=== PATIENT | male | born 1990 | race Caucasian/White ===

== ENCOUNTER 2024-08-26 16:55 | Emergency (ER) | payer MEDICARE, SELFPAY ==
[2024-08-26 16:57] VITALS: BP 130/94
[2024-08-26 17:16] LABS: % Basophils 0.3 % (0-2); % Eosinophils 0.1 % (0-6); % Immature Granulocytes 0.2 % (0-0.5); % Lymphocytes 5.8 % (20.5-51.1); % Monocytes 7.3 % (1.7-9.3); % Neutrophils 86.3 % (42.2-75.2); Absolute Lymphocytes 0.6 10^3/uL (1.2-3.4); Absolute Monocytes 0.7 10^3/uL (0.1-0.6); Absolute Neutrophils 8.3 10^3/uL (1.4-6.5); Hematocrit 44.6 % (39.0-52.0); Hemoglobin 16.2 g/dL (13.0-18.0); Mean Corp Hgb Conc. 36.3 g/dL (33.0-37.0); Mean Corpuscular Hgb 30.8 pg (27.0-31.0); Mean Corpuscular Volume 84.8 fL (80.0-94.0); Mean Platelet Volume 9.9 fL (7.4-10.4); Nucleated Red Blood Cells % 0 % (-); Platelet Count 192 10^3/uL (130-400); Red Blood Cell Count 5.26 10^6/uL (4.70-6.10); Red Cell Dist. Width 12.2 % (11.5-14.5); White Blood Cell Count 9.6 10^3/uL (4.8-10.8)
[2024-08-26 17:28] LABS: ALT (SGPT) 25 U/L (0-50); AST (SGOT) 26 U/L (17-59); Albumin 4.3 g/dl (3.5-5.0); Alkaline Phosphatase 62 U/L (38-126); Blood Urea Nitrogen 15 mg/dl (9-20); Carbon Dioxide 29 mmol/L (22-30); Chloride 96 mmol/L (98-107); Glucose 154 mg/dl (70-99); Lipase 37 U/L (23-300); Potassium 4.1 mmol/L (3.5-5.1); Sodium 132 mmol/L (135-145); Total Bilirubin 1.3 mg/dl (0.2-1.3); eGFR > 60.00
--- NOTE | 2024-08-26 19:58 | ED.GENMED ---
History of Present Illness
<Va Orourke MD, Resident - Last Filed: 08/26/24 22:08>
General
Chief Complaint: Abdominal Symptoms
Source: patient
Exam Limitations: none
Time Seen by Provider: 08/26/24 19:39
Nursing documentation reviewed up to this point in time: agreed with
History of Present Illness
History of Present Illness:
34yo M with H diverticulosis, prediabetes who presents from home to ED for abdominal pain, vomiting, constipation. He reports history of chronic constipation for several years, last saw GI for colonoscopy about 1 year ago, not on any daily
medications, reports small hard to pass BMs with occasional bright red blood. His last BM/flatus was 2 days ago and feels worsening abdominal pain. He tried taking miralax once with no relief. Last night he began vomiting and noticed small amount
bright red blood. Denies difficulty swallowing or significant pain with eating/drinking. Also reports chills, malaise, diffuse body aches, mild lightheadedness with standing starting last night as well.
Past History
<Va Orourke MD, Resident - Last Filed: 08/26/24 22:08>
Past History
ED Past Medical History: NIDDM (prediabetes diet controlled) and Other (diverticulosis, h/o diverticulitis)
ED Past Surgical History: None
Patient has exhibited threatening behavior?: No
Social History
Tobacco: Vaping (daily, 1 pod per day)
Alcohol: Former
Drug: Marijuana (daily)
Personal: Single
Living: alone
Review of Systems
<Va Orourke MD, Resident - Last Filed: 08/26/24 22:08>
Review of Systems
Allergies reviewed?: Yes
Constitutional: Reports fatigue and chills; Denies fever
EENT: Reports sore throat (2/2 vomiting)
Respiratory: Reports no symptoms; Denies cough or trouble breathing
Cardiac: Reports chest pain; Denies diaphoresis, palpitations or syncope
ABD/GI: Reports abdominal pain, nausea, vomiting, constipated and bloody stools; Denies diarrhea or black stools
: Reports no symptoms
Musculoskeletal: Reports joint pain and muscle pain; Denies edema
Skin: Reports no symptoms
Neurological: Reports dizzy; Denies headache
Endocrine: Reports no symptoms
Hematologic/Lymphatic: Reports no symptoms
Psychiatric: Reports no symptoms
Phy Exam
<Va Orourke MD, Resident - Last Filed: 08/26/24 22:08>
General Physical Exam
General Presentation: well appearing and no apparent distress
General age: appears stated age
General Skin: warm and dry
General Habitus: normal
General Mental: alert
General Hydration: dry mucous membranes
Cardiovascular Exam
Cardiovascular Exam: regular rate/rhythm, no edema and no murmur
Pulmonary Exam
Pulmonary Exam: lungs clear, no respiratory distress, no crackles, no rhonchi, no wheezing and no cough
Oxygen Status: room air
Gastrointestinal Exam
Gastrointestinal Exam: normal bowel sounds, non tender, soft, non distended and other (no rebound, rigidity, guarding)
Neurological Exam
Neurological Exam: alert, oriented x3 and speech normal
Musculoskeletal Exam
Musculoskeletal Exam: no edema
Skin Exam
Skin Exam: normal color and warm/dry
Psychiatric Exam
Psychiatric Exam: normal mood/affect
Course
<Va Orourke MD, Resident - Last Filed: 08/26/24 22:08>
Orders/Labs/Results
Orders:
Orders
08/26/24 17:04
Comprehensive Metabolic Panel Urgent
Lipase Urgent
08/26/24 17:05
Complete Blood Count/With Diff Urgent
08/26/24 20:13
Abdomen Xray - 1 View [CR Abdomen - 1 View] Urgent
Comment:
Reason For Exam: vomiting, abd pain. CONSTIPATION-eval stool burden
08/26/24 20:14
0.9% Sodium Chloride 1000 ml [Nss] 1,000 ml IV BOLUS
Ondansetron Injectable [Zofran] 4 mg IV NOW ONE
08/26/24 20:29
Influenza A+B Rapid Molecular Urgent
[place] Source: Nasal Swab
Specimen Description:
08/26/24 21:56
Magnesium Citrate [Citroma] 300 ml PO ONCE ONE
Abnormal Lab Results
08/26/24 08/26/24
17:04 17:05
Absolute Neuts (auto) 8.3 H 10^3/uL
(1.4-6.5)
Absolute Lymphs (auto) 0.6 L 10^3/uL
(1.2-3.4)
Absolute Monos (auto) 0.7 H 10^3/uL
(0.1-0.6)
Neutrophils % 86.3 H %
(42.2-75.2)
Lymphocytes % 5.8 L %
(20.5-51.1)
Sodium 132 L mmol/L
(135-145)
Chloride 96 L mmol/L
(98-107)
Glucose 154 H mg/dl
(70-99)
08/26/24 17:05
08/26/24 17:04
Vital Signs
Initial and Last Documented VS:
Initial Vital Signs
Temp Pulse Resp BP Pulse Ox
98.1 F 117 20 130/94 98
08/26/24 16:57 08/26/24 16:57 08/26/24 16:57 08/26/24 16:57 08/26/24 16:57
Last Documented Vital Signs
Temp Pulse Resp BP Pulse Ox
98.1 F 73 16 114/76 98
08/26/24 16:57 08/26/24 20:33 08/26/24 20:33 08/26/24 20:33 08/26/24 20:45
<Shahid Johnson, DO - Last Filed: 08/26/24 20:17>
Orders/Labs/Results
Orders:
Orders
08/26/24 17:04
Comprehensive Metabolic Panel Urgent
Lipase Urgent
08/26/24 17:05
Complete Blood Count/With Diff Urgent
08/26/24 20:13
Abdomen Xray - 1 View [CR Abdomen - 1 View] Urgent
Comment:
Reason For Exam: vomiting, abd pain. CONSTIPATION-eval stool burden
08/26/24 20:14
0.9% Sodium Chloride 1000 ml [Nss] 1,000 ml IV BOLUS
Ondansetron Injectable [Zofran] 4 mg IV NOW ONE
08/26/24 20:29
Influenza A+B Rapid Molecular Urgent
[place] Source: Nasal Swab
Specimen Description:
08/26/24 21:56
Magnesium Citrate [Citroma] 300 ml PO ONCE ONE
Abnormal Lab Results
08/26/24 08/26/24
17:04 17:05
Absolute Neuts (auto) 8.3 H 10^3/uL
(1.4-6.5)
Absolute Lymphs (auto) 0.6 L 10^3/uL
(1.2-3.4)
Absolute Monos (auto) 0.7 H 10^3/uL
(0.1-0.6)
Neutrophils % 86.3 H %
(42.2-75.2)
Lymphocytes % 5.8 L %
(20.5-51.1)
Sodium 132 L mmol/L
(135-145)
Chloride 96 L mmol/L
(98-107)
Glucose 154 H mg/dl
(70-99)
08/26/24 17:05
08/26/24 17:04
Vital Signs
Initial and Last Documented VS:
Initial Vital Signs
Temp Pulse Resp BP Pulse Ox
98.1 F 117 20 130/94 98
08/26/24 16:57 08/26/24 16:57 08/26/24 16:57 08/26/24 16:57 08/26/24 16:57
Last Documented Vital Signs
Temp Pulse Resp BP Pulse Ox
98.1 F 73 16 114/76 98
08/26/24 16:57 08/26/24 20:33 08/26/24 20:33 08/26/24 20:33 08/26/24 20:45
<Va Orourke MD, Resident - Last Filed: 08/26/24 22:08>
MDM/Problems Addressed
Differential Diagnosis Includes:
constipation, fecal impaction, bowel obstruction, anal fissure, taryn arias tear
MDM/Problems Addressed:
34yo M with chronic constipation presenting for abdominal pain, vomiting, constipation.
CBC, CMP, lipase ordered prior to evaluation unremarkable.
Do not suspect bowel obstruction or perforation given benign abdominal exam.
Treat nausea/vomiting with zofran and IV NS bolus. Reassess symptoms prn.
Will obtain abdominal xray to evaluate stool burden.
Discussed possible treatment options including enema, mag citrate, disimpaction pending abd xray results.
Will need GI and PCP follow up as well as long-term bowel regimen.
Will check flu swab given additional nonspecific symptoms starting last night.
<Va Orourke MD, Resident - Last Filed: 08/26/24 22:08>
*Critical Care Note
Total Time (30-74mins, 75-104mins- exclusive of procedures): Not Applicable
<Va Orourke MD, Resident - Last Filed: 08/26/24 22:08>
Update Note
Update Note:
Returned to bedside-- patient remains well-appearing, no distress. Abd xray shows stool in colon. Will discharge home with mag citrate. After mag citrate produces bowel movement, reviewed use of daily miralax to prevent future constipation. Flu
negative. He should follow up with his PCP and GI outpatient provider. Discussed above with patient-- he is understanding and agreeable with plan.
ED Attending Note
<aV Orourke MD, Resident - Last Filed: 08/26/24 22:08>
-
Portions of this chart may have been created with voice recognition software.� Occasional wrong word or��sound alike� substitutions may have occurred due to the inherent limitations of voice recognition software.
<Shahid Johnson DO - Last Filed: 08/26/24 20:17>
ED Attending Note
Patient seen and examined by attending physician: Yes
I performed the substantive portion of visit, reviewed & personally made and approve the management plan that is documented in note by myself or ALPHONSE.: Yes
ED Attending Note:
I have seen and evaluated the patient with a [id number] encounter. I have spoken to the resident and involved in the medical history, the physical exam, medical decision making.
Evaluation and management service: agree unless noted differently below.
Results interpretation: agree unless noted differently below.
Focused HPI: 34-year-old male presenting with vague abdominal pain, constipation, nausea and vomiting. Patient states he has vomited multiple times that he is now noticing blood-tinged sputum. We discussed likely Taryn-Arias tear. Patient
states he has not passed any stool in over 24 hours. He does have a constipation. MiraLAX at home does not help
Physical exam: Sitting in bed comfortably. Mildly dry mucous membranes. No chest wall crepitus. Abdomen soft and nontender. No abdominal distention
Medical Decision Making: Will obtain x-ray to evaluate the amount and location of patient. Will consider magnesium citrate and possibly enema. No clinical evidence to suggest small bowel obstruction
Discharge Plan
Departure
Patient Disposition: Home (Routine Discharge)
Date of Disposition: 08/26/24
Time of Disposition: 21:57
Patient with high blood pressure during this ER visit?: No
Discharge Problem:
Constipation
Instructions: Constipation, Adult (DC)
Prescriptions:
No Action
famotidine 20 MG tablet
20 mg PO BID Qty: 28 0RF
Rx Instructions:
Take 20 mg twice a day for 14 days
ascorbic acid (vitamin C) [Vitamin C] 500 MG tablet
1,000 mg PO BID Qty: 56 0RF
Rx Instructions:
Take 1,000 mg twice a day for 14 days
aspirin 81 MG tablet,chewable
81 mg PO DAILY Qty: 14 0RF
Rx Instructions:
Take 81 mg daily for 14 days
zinc sulfate 220 MG capsule
220 mg PO DAILY Qty: 14 0RF
Rx Instructions:
Take 220 mg daily for 14 days
cholecalciferol (vitamin D3) 1,000 UNITS tablet
2,000 units PO DAILY Qty: 28 0RF
Rx Instructions:
Take 2,000 units daily for 14 days
melatonin 5 MG tablet
5 mg PO HS Qty: 14 0RF
Rx Instructions:
Take 5 mg daily at bedtime for 14 days
Referrals:
Fran Cervantes MD [Active] - As needed (Call your [facility] tele[facility] technician to schedule follow up appointment as needed)
Martita Kim CRNP [Family Provider] - Call in 1-3 days for appt (Call your Primary Care Provider to schedule follow up appointment after being seen in Emergency Room.)
Activity Restrictions/Additional Instructions:
You were seen in the Emergency Room for abdominal pain, nausea/vomiting, constipation.
Your abdominal xray showed stool in your colon. There was no bowel obstruction.
Your lab work was normal. Flu test was negative.
You should take mag citrate at home help you have a bowel movement. After you have a bowel movement, start miralax daily to prevent constipation in the future.
Follow up with your Primary Care Provider this week after being seen in the Emergency Room.
Follow up with the [facility] tele[facility] technician you have seen in the past. If you need a referral to the [facility], their information is provided in your discharge paperwork.
Return to the emergency room for worsening symptoms, not able to tolerate any food/drink, or new concerns.
Interventions
Interventions:
*General Assessment Last Done: 08/26/24 16:57
*ED COVID-19 Vaccine History Last Done: 08/26/24 21:06
[id number] Assessment Last Done: 08/26/24 21:06
Discharge Date and Time
Print Language: BULGARIAN
[2024-08-26] MEDS: NSS 1000 IV (20:28)
[2024-08-26] MEDS: ZOFRAN 4 MG IV (20:30)
[2024-08-26 20:33] VITALS: BP 114/76
[2024-08-26 22:08] VITALS: BP 106/61
[2024-08-26] MEDS: CITROMA 300 ML PO (22:09)
== END 2024-08-26 22:15 | disposition home or self-care (01) ==
LOC: EMR 16:55
PROVIDERS: Emergency Medicine; EMERGENCY PHYSICIAN Student in an Organized Health Care Education/Training Program; FAMILY PHYSICIAN Registered Nurse
DX: K59.09 Other constipation (principal); F17.290 Nicotine dependence, other tobacco product, uncomplicated; R73.03 Prediabetes
CPT/HCPCS: 96374; 96361; 99284; 74018; 80053; 83690; 85025; 87502